=== PATIENT | male | born 1995 | race Caucasian/White ===

== ENCOUNTER → 2017-04-03 15:14 | Outpatient (CLI) | payer BC, SELFPAY ==
[2017-04-03 17:56] LABS: Absolute Neutrophil Count 4.4 X10^3/uL (2.0-7.7); Basophil# 0.03 X10^3/uL; Basophil% 0.5 % (0-1); Eosinophil# 0.06 X10^3/uL; Hematocrit 42.8 % (40-54); Hemoglobin 14.2 g/dl (13.0-16.5); Lymphocyte % 17.9 % (19-41); Mean Corp Hgb Conc 33.2 g/gl (32-36); Mean Corpuscular Hgb 26.5 pg (27.0-32.0); Mean Corpuscular Volume 79.9 fL (80-94); Mean Platelet Vol. 11.2 fl (6.2-12.0); Monocyte% 8.2 % (0-10); Neutrophil # 4.44 X10^3/uL (2.7-7.7); Neutrophil % 72.4 % (47-70); Platelet Count 174 K/mm3 (150-450); RBC Distribution Width CV 13.4 % (11.6-14.6); RBC Distribution Width SD 38.8 fl (35.1-43.9); Red Blood Count 5.36 M/mm3 (4.6-6.2); White Blood Count 6.1 K/mm3 (4.4-11.0)
[2017-04-03 17:57] LABS: POSITIVE COUNT NO; POSITIVE DIFFERENTIAL NO; POSITIVE MORPHOLOGY NO
[2017-04-03 18:15] LABS: ALB/GLOB Ratio 1.1 RATIO (0.9-2.4); AST(SGOT) 23 U/L (15-37); Alanine Aminotransfer ALT/SGPT 33 U/L (16-61); Albumin, Serum 3.8 g/dL (3.2-5.0); Alkaline Phosphatase 105 U/L (45-117); Anion Gap 8 (5-15); BUN 22 mg/dL (7-18); Calcium,Total 8.8 mg/dL (8.5-10.1); Chloride 105 mmol/L (98-107); Creatinine, Serum 1.05 mg/dL (0.70-1.30); EST Glomerular Filtration Rate 94 mL/min (>60); Est Glom Filt Rate - Afr Amer 113 mL/min (>60); Globulin 3.4 g/dL (2.2-4.2); Glucose 83 mg/dL (74-106); Potassium 3.5 mmol/L (3.5-5.1); Protein, Total 7.2 g/dL (6.4-8.2); Sodium Level 142 mmol/L (136-145)
== END ==
PROVIDERS: Family Provider Family Medicine; PCP Family Medicine; Visit Provider Family Medicine
DX: Z00.00 Encounter for general adult medical examination without abnormal findings (principal)
CPT/HCPCS: 36415; 80053; 85025

== ENCOUNTER 2017-04-08 12:28 | Day surgery (SDC) | payer BC, SELFPAY ==
--- NOTE | 2017-04-08 12:37 | EKG12_ITS ---
Test Reason : PRE-OP Blood Pressure : / mmHG Vent. Rate : 058 BPM Atrial Rate : 058 BPM P-R Int : 188 ms QRS Dur : 100 ms QT Int : 406 ms P-R-T Axes : 042 -18 006 degrees QTc Int : 398 ms Sinus bradycardia Inferior infarct , age undetermined Abnormal ECG No previous ECGs available Confirmed by DEJA YAO ([id number]), associate entertainment editor FRANCISCO MAYA ([id number]) on 04/11/2017 3:01:33 PM Referred By: REBECA Confirmed By:DEJA YAO
[2017-04-08 12:52] VITALS: BP 136/71; PULSE 66; RESP 16; TEMP 36.3; O2SAT 97; BMI 28.1
--- NOTE | 2017-04-08 13:45 | BON_PTH ---
PATIENT: AUBREY DESOUZA LOC: [facility] – [place] U#:[id number] AGE/SX: 21/M ROOM: RE04/08/[address]: Dr. Hilario Angel DPM : 1995 BED: DIS: 04/08/2017 SPEC #: [id number] RECD: 04/09/17 11:22 STATUS: DOROTHY HUGHES #: [id number] ORION: 04/08/17 13:[address]: Hilario Angel DEPT: SURGICAL PATHOLOGY RECD BY: Chiki Christopher ENTERED: 04/09/17 11:24 SP TYPE: Bone OTHR DR: Dr. Lorenzo Marshall MD Tissues: A - Bone of foot, NOS B - Bone of foot, NOS Procedures: Decalcification bone/plaque Special Stain Group I Surgery Specimen Level IV AFB Stain (control) GMS Stain (control) HEADER OPERATION: Bone biopsy right ankle PRE-OP DIAGNOSIS: Avascular necrosis right ankle TISSUE SUBMITTED: A ? Bone biopsy right ankle #1, B - Bone biopsy right ankle #2 MICROSCOPIC DIAGNOSIS A. Bone of right ankle, biopsy: Bone with reparative and active change. Negative for acid-fast bacilli and fungal organisms. B. Bone of right ankle #2, biopsy: Fragments of bone with focal changes suggestive of avascular necrosis. AM:darrel 04/15/17 COMMENT AFB and GMS stains with matched controls are negative for microorganisms. Case has been reviewed in consultation with Dr. Looney who concurs with the above diagnosis. IDC:SJ MICROSCOPIC DESCRIPTION Slides are reviewed. GROSS DESCRIPTION A - Received in fixative is one container labeled with the patient's name and designated bone biopsy right ankle. The specimen consists of multiple irregular fragments of pink-patel soft tissue that in aggregate measure 1 x 0.7 x 0.3 cm. The specimen is totally submitted in one cassette after decalcification. B - Received in fixative is one container labeled with the patient's name and designated bone biopsy right ankle #2. The specimen consists of multiple irregular fragments of pink-patel soft tissue that in aggregate measure 0.7 x 0.4 x 0.2 cm. The specimen is totally submitted in one cassette after decalcification. / RONNI:darrel 04/09/17 TC:5 CPT: 98432 x2, 78508 x2
--- NOTE | 2017-04-08 13:45 | RAD_ITS ---
STUDY: X-RAY - RIGHT ANKLE REASON FOR EXAM: Male, 21 years old. Bone biopsy. TECHNIQUE: 4 intraoperative view(s) of the ankle. COMPARISON: Comparison is made with prior examination dated January 19, 2016. FINDINGS: Fluoroscopic imaging provided for intraoperative bone biopsy of the superior aspect of the talus. RAD/Ankle 2 Views IMPRESSION: Intraoperative imaging provided for biopsy of the talus. Electronically Signed: Jassi Coronel MD at 12:27 EST Tel [phone], Service support ,
[2017-04-08] MEDS: Cefazolin 2 GM in 0.9% Normal Saline 100 ML IV (14:30)
[2017-04-08] MEDS: Bupivacaine 0.25% 30 ML Vial (14:36)
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
--- NOTE | 2017-04-08 14:49 | PCM.DC.POD ---
Discharge Diet: Light diet - advance as tolerated Discharge Activity: May Not Drive Weight Bearing Status: Partial weight bearing - Use CAM Walker boot on right foot/ankle with weightbearing/ambulation Keep extremity elevated above heart level: Right Leg - Elevate right foot/ankle as much as possible Call your doctor if your incision/area has: Continuous Slow Oozing, Sudden Increased Bleeding, Increased Pain/ Swelling, Foul Smelling Discharge Call your doctor if you observe: Fever of 101 or Higher, Shortness of breath, Chest pain, Increased palpitations (irregular heartbeat), Calf discomfort, Uncontrolled pain Cleanse incision/area with: Do not get Incision Wet, Keep Dressing Clean & Dry Allergies/Adverse Reactions: Allergies No Known Allergies Allergy (Verified 04/05/17 13:25) Medications to take at Discharge Citalopram [Celexa] 40 mg PO DAILY 07/17/15 Naproxen 500 mg PO PRN PRN 04/05/17 Hydrocodone/Acetaminophen [Vicodin 5-300 mg Tablet] 1 tab PO Q6H PRN PRN 5 Days #20 tab 04/08/17 The following prescriptions were given: Hydrocodone/Acetaminophen [Vicodin 5-300 mg Tablet] 1 tab PO Q6H PRN PRN 5 Days #20 tab PRN Reason: Pain Primary Care Physician: Lorenzo Marshall MD [Primary Care Provider] - Please Follow Up With: Hilario Angel DPM When: within 1 week or sooner if needed
[2017-04-08 14:50] VITALS: BP 136/71; BP 140/74; PULSE 75; RESP 15; TEMP 36.3; O2SAT 94
[2017-04-08 15:00] VITALS: BP 136/71; BP 149/89; PULSE 67; RESP 16; O2SAT 98
[2017-04-08 15:15] VITALS: BP 133/62; BP 136/71; PULSE 78; RESP 18; TEMP 36.9; O2SAT 100
--- NOTE | 2017-04-08 15:20 | RAD_ITS ---
STUDY: X-RAY - RIGHT ANKLE REASON FOR EXAM: Male, 21 years old. Status post bone biopsy TECHNIQUE: 3 view(s) of the ankle. COMPARISON: 01/19/2016 FINDINGS: Status post ORIF of medial malleolar fracture with 2 fixation screws. Talar neck fixation pins are identified. Sclerosis and deformity of the talus particularly along the lateral aspect is worse since the prior study. Subchondral sclerosis and lucency now involves the distal tibia. Small bony fragments adjacent to the lateral malleolus and along the posterior tibia is stable. mild soft tissue swelling is stable RAD/Ankle min 3 Views IMPRESSION: 1. Stable alignment. 2. 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 Operative changes similar. Electronically Signed: Jon Juan MD at 20:00 EST , Service support ,
[2017-04-08 16:10] VITALS: BP 136/71
== END 2017-04-08 16:24 | disposition home or self-care (01) ==
LOC: SDC 12:30 → AC 12:31
PROVIDERS: Family Provider Family Medicine; PCP Family Medicine; Visit Provider Podiatrist
PROC: (CPT 20240; principal; 2017-04-08 13:30)
DX: M87.9 Osteonecrosis, unspecified (principal); M19.071 Primary osteoarthritis, right ankle and foot; S92.101S Unspecified fracture of right talus, sequela; S82.51XS Displaced fracture of medial malleolus of right tibia, sequela; V89.2XXS Person injured in unspecified motor-vehicle accident, traffic, sequela
CPT/HCPCS: 20240; 73600; 73610; 76000; 87015; 87070; 87075; 87102; 87116; 87205; 87206; 88305; 88311; 88312; 93005; J7120; J2405

== ENCOUNTER 2017-04-19 17:24 | Observation (INO) | payer BC, SELFPAY ==
[2017-04-19] VITALS (12 sets, daily range): BP systolic 125–179; BP diastolic 54–90; PULSE 69–108; RESP 16–18; TEMP 36.2–37.5; O2SAT 94–100; BMI 28.0
[2017-04-19 10:01] LABS: Vitamin D,25 Hydroxy 24.4 ng/mL (29.95-100.01)
--- NOTE | 2017-04-19 10:30 | RAD_ITS ---
STUDY: X-RAY - LEFT ANKLE REASON FOR EXAM: Male, 21 years old. Surgical ankylosis. TECHNIQUE: 5 C-arm views from the OR. 108.5 seconds fluoroscopy time. COMPARISON: 04/08/2017.. FINDINGS: These images show posterior surgical ankylosis between the tibia, talus, calcaneus. Correlate with procedure note. Electronically Signed: Milind Wood MD at 20:29 EST , Service support , RAD/Ankle min 3 Views
[2017-04-19] MEDS: Cefazolin 2 GM in 0.9% Normal Saline 100 ML IV (10:32)
--- NOTE | 2017-04-19 10:45 | BON_PTH ---
PATIENT: AUBREY DESOUZA LOC: [facility] U#:[id number] AGE/SX: 21/M ROOM: [facility] [place] RE04/19/[address]: Dr. Vaishali Lozoya MD : 1995 BED: 1 DIS: 04/21/2017 SPEC #: [id number] RECD: 04/22/17 08:29 STATUS: DOROTHY REQ #: [id number] ORION: 04/19/17 10:[address]: Hilario Angel DEPT: SURGICAL PATHOLOGY RECD BY: Zaid Aleman ENTERED: 04/22/17 09:24 SP TYPE: Bone OTHR DR: MD Dr. Vaishali Bolden MD Dr. Paul Nielsen, MD Tissues: Tibia, NOS Procedures: Decalcification bone/plaque Surgery Specimen Level III Comments: @ Ordering doctor for DEC edited from to @ by CATHY at 04/22/17 1427 @ Ordering doctor for SUIV edited from to @ by CATHY at 04/22/17 1427 @ Submitting doctor edited from to @ by RGOOD at 04/22/17 1427 HEADER OPERATION: Right ankle, [id number] arthrodesis with internal fixation PRE-OP DIAGNOSIS: Avascular necrosis of talus, degenerative joint disease of ankle, right TISSUE SUBMITTED: Right ankle debrided nonunion MICROSCOPIC DIAGNOSIS Right ankle, nonunion bone: Pieces of bone with reactive changes. Focal mild chronic inflammation. HA:darrel 04/25/17 MICROSCOPIC DESCRIPTION Slides are reviewed. GROSS DESCRIPTION Received in fixative is one container labeled with the patient's name and designated right ankle debrided nonunion. The specimen consists of two pieces of bone measuring in aggregate 2 x 1.5 x 0.5 cm. The entire specimen is submitted in one cassette after decalcification. / HA:darrel 04/22/17 TC:5 CPT: 09635, 85958
--- NOTE | 2017-04-19 10:45 | RAD_ITS ---
STUDY: X-RAY - LEFT ANKLE REASON FOR EXAM: Male, 21 years old. Surgical ankylosis. TECHNIQUE: 5 C-arm views from the OR. 108.5 seconds fluoroscopy time. COMPARISON: 04/08/2017.. FINDINGS: These images show posterior surgical ankylosis between the tibia, talus, calcaneus. Correlate with procedure note. Electronically Signed: Milind Wood MD at 20:29 EST , Service support , RAD/O.[place] for C-Arm
[2017-04-19] MEDS: Bupivacaine 0.25% 30 ML Vial (16:45)
--- NOTE | 2017-04-19 16:58 | RAD_ITS ---
STUDY: X-RAY - RIGHT CALCANEUS REASON FOR EXAM: Male, 21 years old. Postop right ankle foot and calcaneus TECHNIQUE: 2 view(s) of the calcaneus were obtained. COMPARISON: 09/05/2017. FINDINGS: There has been fixation of the ankle posteriorly with a compression plate and screws across the distal tibia, into the talus, and into the calcaneus. There is an additional long screw that runs through the calcaneus talus and the anterior tibia. The tibiotalar and posterior tibial calcaneal joints have been decorticated for future ankylosis. No fractures are seen. RAD/Calcaneus min 2 Views IMPRESSION: Postsurgical changes with posterior fixation across the distal tibia, talus, and calcaneus. Electronically Signed: Milind Wood MD at 18:53 EST , Service support ,
--- NOTE | 2017-04-19 16:58 | RAD_ITS ---
STUDY: X-RAY - RIGHT FOOT CLINICAL: Male, 21 years old. Postop ankylosis. TECHNIQUE: 3 view(s) of the foot. COMPARISON: 04/08/2017. FINDINGS: There has been surgical ankylosis of the distal tibia, talus, and calcaneus with a posterior compression plate and a long screw through the calcaneus, talus and distal tibia. The foot is otherwise normal. RAD/Foot min 3 Views IMPRESSION: Surgical changes of ankylosis of the tibia, talus, and calcaneus. Electronically Signed: Milind Wood MD at 18:54 EST , Service support ,
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
--- NOTE | 2017-04-19 17:35 | RAD_ITS ---
STUDY: X-RAY - RIGHT ANKLE REASON FOR EXAM: Male, 21 years old. Postop fixation. TECHNIQUE: 3 view(s) of the ankle. COMPARISON: 04/08/2017. FINDINGS: Postsurgical changes of a surgical fixation between the distal tibia, talus, and calcaneus. There is partial collapse suggested of the talus. There is diffuse soft tissue swelling. Electronically Signed: Milind Wood MD at 18:58 EST , Service support , RAD/Ankle min 3 Views
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
[2017-04-19] MEDS: Cefazolin 1 GM/50 ML BAG IV (19:29)
[2017-04-19] MEDS: Acetaminophen 325 MG Tablet 650 MG PO (21:58)
[2017-04-19] MEDS: Senna/Docusate Sodium 1 Tablet PO (21:59)
[2017-04-20] MEDS: Cefazolin 1 GM/50 ML BAG IV ×2 (02:11→10:18)
[2017-04-20 04:40] VITALS: BP 133/45; PULSE 75; RESP 16; TEMP 36.8; O2SAT 95
[2017-04-20] MEDS: oxyCODONE 5 MG Tablet 10 MG PO ×4 (04:50→20:41)
[2017-04-20] MEDS: 0.9% NaCl Peripheral Flush Adult/Peds IV ×2 (06:16→07:17)
[2017-04-20] MEDS: Enoxaparin 40 MG/0.4 ML Syringe SC (06:17)
[2017-04-20] MEDS: Citalopram 40 MG TABLET PO (06:17)
[2017-04-20 07:05] LABS: Absolute Lymphocyte Count 0.87 X10^3/ul (0.83-4.51); Absolute Neutrophil Count 6.5 X10^3/uL (2.0-7.7); Basophil# 0.01 X10^3/uL; Basophil% 0.1 % (0-1); Eosinophil# 0.02 X10^3/uL; Eosinophils% 0.2 % (0-5); Hematocrit 39.2 % (40-54); Hemoglobin 13.2 g/dl (13.0-16.5); Lymphocyte # 0.87 X10^3/ul (4.0); Lymphocyte % 10.5 % (19-41); Mean Corp Hgb Conc 33.7 g/gl (32-36); Mean Corpuscular Volume 80.2 fL (80-94); Mean Platelet Vol. 10.9 fl (6.2-12.0); Monocyte# 0.94 X10^3/uL; Monocyte% 11.3 % (0-10); Neutrophil # 6.45 X10^3/uL (2.7-7.7); Neutrophil % 77.7 % (47-70); Platelet Count 146 K/mm3 (150-450); RBC Distribution Width CV 13.6 % (11.6-14.6); RBC Distribution Width SD 39.1 fl (35.1-43.9); Red Blood Count 4.89 M/mm3 (4.6-6.2); White Blood Count 8.3 K/mm3 (4.4-11.0)
[2017-04-20 07:08] LABS: POSITIVE COUNT NO; POSITIVE DIFFERENTIAL NO; POSITIVE MORPHOLOGY NO
[2017-04-20] MEDS: HYDROmorphone 1 MG/ML Syringe IV ×3 (07:10→19:54)
[2017-04-20 07:26] LABS: Anion Gap 7 (5-15); BUN 15 mg/dL (7-18); BUN/Creat Ratio 13.3 RATIO (10-20); Calcium,Total 8.1 mg/dL (8.5-10.1); Chloride 104 mmol/L (98-107); Creatinine, Serum 1.13 mg/dL (0.70-1.30); EST Glomerular Filtration Rate 86 mL/min (>60); Est Glom Filt Rate - Afr Amer 104 mL/min (>60); Estimated Creatinine Clearance 119.22 ml/min; Glucose 119 mg/dL (74-106); Potassium 3.9 mmol/L (3.5-5.1); Sodium Level 140 mmol/L (136-145)
[2017-04-20 07:37] VITALS: O2SAT 97
--- NOTE | 2017-04-20 08:12 | PCM.PROGNOTE ---
Subjective: Patient seen this morning for follow up on right ankle and subtalar joint arthrodesis on 04/19/17. Patient noted increased pain this morning once block wore off, not controlled with oxyir and morphine. Pain is localized to the fusion sites. No complaints of fever, chills, nausea, vomiting, chest pain or shortness of breath. - Physical Exam General: Alert, Oriented x3, Cooperative Extremities: Capillary Refill Less than 3 Seconds, No Calf Tenderness, Peripheral Pulses Normal, - - Dressing/splint removed, there is no active bleeding, no cellulitis, no necrosis, no blistering, no maloder, no fluctuance, no evidence of infection; skin incisions well coapted with sutures intact; patient is able to wiggle toes, and he does report he is able to feel toes when touched, vascular status intact to the foot with CFT < 2 seconds and normal temperature present. Vital Signs Temp Pulse Resp BP Pulse Ox 98.3 F 75 16 133/45 H 95 04/20/17 04:40 04/20/17 04:40 04/20/17 04:40 04/20/17 04:40 04/20/17 04:40 Oxygen Delivery Method Room Air Weight: 99.3 kg Body Mass Index (BMI) 28.0 Intake and Output for Last 24 Hours 04/18/17 04/19/17 04/20/17 23:59 23:59 23:59 Intake Total 3800 / 3800 1554 / 1554 Output Total 700 / 700 950 / 950 Balance 3100 / 3100 604 / 604 Laboratory Tests Past 24 Hrs 04/19/17 04/20/17 04/20/17 09:15 06:42 06:42 WBC 8.3 RBC 4.89 Hgb 13.2 Hct 39.2 L MCV 80.2 MCH 27.0 MCHC 33.7 RDW 13.6 RDW Differential 39.1 Plt Count 146 L MPV 10.9 Immature Gran % (Auto) 0.200 Neut % (Auto) 77.7 H Lymph % (Auto) 10.5 L [place] % (Auto) 11.3 H Eos % (Auto) 0.2 Baso % (Auto) 0.1 Absolute Neuts (auto) 6.5 Absolute Lymphs (auto) 0.87 Total Counted Not Reportable Sodium 140 Potassium 3.9 Chloride 104 Carbon Dioxide 29.0 Anion Gap 7 BUN 15 Creatinine 1.13 Estim Creat Clear Calc 119.22 Est GFR (MDRD) Af Amer 104 Est GFR (MDRD) Non-Af 86 BUN/Creatinine Ratio 13.3 Glucose 119 H Calcium 8.1 L Vitamin D 25-Hydroxy 24.4 L Assessment/Plan 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 No evidence of DVT at this time. D/C morphine and added 1-2 mg of Dilaudid q 4 hours prn pain. Also with patient's consent a right proximal ankle block was completed to elevator constructor helper pain control. The skin was cleansed with 70% isopropyl alcohol and 30mL of 0.5% Marcaine plain was given as a regional nerve block around the proximal right ankle. A clean, dry, sterile gauze, Kerlix and maria dressing was applied. With this patient noted significant improvement and significantly less pain to site. No weightbearing right foot, keep right foot elevated with heel offloaded. DVT prophylaxis: Lovenox 40mg subcutaneous daily. Low Vitamin D: Vitamin D 50,000 units PO once a week for 8 weeks. Continue to monitor, once pain is controlled with oral medications ok to discharge home (possibility tomorrow). Will continue to follow. Appreciate medicine team's assistance.
--- NOTE | 2017-04-20 08:20 | PN_ITS ---
Subjective: Patient seen this morning for follow up on right ankle and subtalar joint arthrodesis on 04/19/17. Patient noted increased pain this morning once block wore off, not controlled with oxyir and morphine. Pain is localized to the fusion sites. No complaints of fever, chills, nausea, vomiting, chest pain or shortness of breath. - Physical Exam General: Alert, Oriented x3, Cooperative Extremities: Capillary Refill Less than 3 Seconds, No Calf Tenderness, Peripheral Pulses Normal, - - Dressing/splint removed, there is no active bleeding, no cellulitis, no necrosis, no blistering, no maloder, no fluctuance, no evidence of infection; skin incisions well coapted with sutures intact; patient is able to wiggle toes, and he does report he is able to feel toes when touched, vascular status intact to the foot with CFT < 2 seconds and normal temperature present. Vital Signs Temp Pulse Resp BP Pulse Ox 98.3 F 75 16 133/45 H 95 04/20/17 04:40 04/20/17 04:40 04/20/17 04:40 04/20/17 04:40 04/20/17 04:40 Oxygen Delivery Method Room Air Weight: 99.3 kg Body Mass Index (BMI) 28.0 Intake and Output for Last 24 Hours 04/18/17 04/19/17 04/20/17 23:59 23:59 23:59 Intake Total 3800 / 3800 1554 / 1554 Output Total 700 / 700 950 / 950 Balance 3100 / 3100 604 / 604 Laboratory Tests Past 24 Hrs 04/19/17 04/20/17 04/20/17 09:15 06:42 06:42 WBC 8.3 RBC 4.89 Hgb 13.2 Hct 39.2 L MCV 80.2 MCH 27.0 MCHC 33.7 RDW 13.6 RDW Differential 39.1 Plt Count 146 L MPV 10.9 Immature Gran % (Auto) 0.200 Neut % (Auto) 77.7 H Lymph % (Auto) 10.5 L [place] % (Auto) 11.3 H Eos % (Auto) 0.2 Baso % (Auto) 0.1 Absolute Neuts (auto) 6.5 Absolute Lymphs (auto) 0.87 Total Counted Not Reportable Sodium 140 Potassium 3.9 Chloride 104 Carbon Dioxide 29.0 Anion Gap 7 BUN 15 Creatinine 1.13 Estim Creat Clear Calc 119.22 Est GFR (MDRD) Af Amer 104 Est GFR (MDRD) Non-Af 86 BUN/Creatinine Ratio 13.3 Glucose 119 H Calcium 8.1 L Vitamin D 25-Hydroxy 24.4 L Assessment/Plan 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 No evidence of DVT at this time. D/C morphine and added 1-2 mg of Dilaudid q 4 hours prn pain. Also with patient' s consent a right proximal ankle block was completed to bindery helper pain control. The skin was cleansed with 70% isopropyl alcohol and 30mL of 0.5% Marcaine plain was given as a regional nerve block around the proximal right ankle. A clean, dry, sterile gauze, Kerlix and maria dressing was applied. With this patient noted significant improvement and significantly less pain to site. No weightbearing right foot, keep right foot elevated with heel offloaded. DVT prophylaxis: Lovenox 40mg subcutaneous daily. Low Vitamin D: Vitamin D 50,000 units PO once a week for 8 weeks. Continue to monitor, once pain is controlled with oral medications ok to discharge home (possibility tomorrow). Will continue to follow. Appreciate medicine team's assistance.
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
[2017-04-20 10:11] VITALS: BP 167/60; PULSE 74; RESP 18; TEMP 36.6; O2SAT 97
[2017-04-20] MEDS: Bupivacaine Mpf 0.5% 30 ML VIAL INFILT (10:13)
[2017-04-20] MEDS: Senna/Docusate Sodium 1 Tablet PO ×2 (10:14→21:21)
[2017-04-20] MEDS: Ketorolac 30 MG/ML Syringe IV ×2 (12:35→21:21)
[2017-04-20] MEDS: Gabapentin 100 MG Capsule PO ×2 (12:39→16:38)
[2017-04-20 16:26] VITALS: BP 140/47; PULSE 70; RESP 18; TEMP 36.9; O2SAT 100
[2017-04-20] MEDS: Tamsulosin HCl 0.4 MG Capsule 0.8 MG PO (18:16)
[2017-04-20] MEDS: Famotidine 20 MG Tablet PO (21:21)
[2017-04-20 22:11] VITALS: BP 145/74; PULSE 89; RESP 16; TEMP 36.6; O2SAT 100
[2017-04-21] MEDS: HYDROmorphone 1 MG/ML Syringe IV (02:42)
[2017-04-21 02:48] VITALS: BP 155/79; PULSE 91; RESP 18; TEMP 37.6; O2SAT 94
[2017-04-21] MEDS: Ketorolac 30 MG/ML Syringe IV (05:08)
[2017-04-21] MEDS: Enoxaparin 40 MG/0.4 ML Syringe SC (05:08)
[2017-04-21] MEDS: oxyCODONE 5 MG Tablet 10 MG PO ×3 (05:25→12:54)
[2017-04-21 07:17] VITALS: O2SAT 96
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
[2017-04-21] MEDS: Acetaminophen 325 MG Tablet 650 MG PO (08:21)
[2017-04-21] MEDS: Gabapentin 100 MG Capsule PO ×2 (08:21→12:54)
[2017-04-21] MEDS: Famotidine 20 MG Tablet PO (08:22)
[2017-04-21] MEDS: Senna/Docusate Sodium 1 Tablet PO (08:23)
[2017-04-21] MEDS: Citalopram 40 MG TABLET PO (08:23)
[2017-04-21] MEDS: Tamsulosin HCl 0.4 MG Capsule 0.8 MG PO (08:23)
[2017-04-21 08:42] VITALS: BP 125/68; PULSE 76; RESP 18; TEMP 36.8; O2SAT 97
--- NOTE | 2017-04-21 09:34 | PCA ---
doctor in with pt
--- NOTE | 2017-04-21 09:36 | PN_ITS ---
Subjective: Patient was seen this morning for follow up on right TTC arthrodesis. He relates he is feeling well, and pain well controlled. He has no complaints at this time. No complains of fever, chills, nausea, vomiting, shortness of breath , chest pain or calf pain. - Physical Exam General: Alert, Oriented x3, Cooperative, No apparent distress Extremities: Capillary Refill Less than 3 Seconds, No Calf Tenderness, - - Dressing clean, dry, and intact, there is no active bleeding, no suspicion of infection and no evidence of DVT, patient is able to move/wiggle toes, and he does report he is able to feel toes when touched, vascular status intact to the foot with CFT < 2 seconds and normal temperature present, no evidence of compartment syndrome. 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 Ok to discharge home today. Applied new clean well padded below knee posterior splint secured with maria bandage. Keep clean, dry, and intact. No weightbearing right foot, keep right foot elevated with heel offloaded. DVT prophylaxis: Lovenox 40mg subcutaneous daily. Low Vitamin D: Vitamin D 50,000 units PO once a week for 8 weeks. Pain control: Oxyir and acetaminophen Patient to follow up with me in office next Saturday, sooner if needed. Appreciate medicine team's assistance.
--- NOTE | 2017-04-21 09:46 | PCM.DC.POD ---
Discharge Activity: May Not Drive, May not drive while taking narcotic pain medications., Use Crutches, - - No driving until cleared per podiatry and no longer taking narcotic therapy. Weight Bearing Status: No weight bearing, - - Strict nonweightbearing to the right foot/ankle Keep extremity elevated above heart level: Right Leg - Keep right foot/ankle elevated with pillows at or above chest level, keep heel offloaded Call your doctor if your incision/area has: Continuous Slow Oozing, Sudden Increased Bleeding, Increased Pain/ Swelling, Increased Redness, Foul Smelling Discharge, Swelling at the incision site Call your doctor if you observe: Fever of 101 or Higher, Coldness, Increased Pain, Inability to urinate, Inability to have a bowel movement, Shortness of breath, Dizziness, Fainting spells, Chest pain, Uncontrolled pain Cleanse incision/area with: Do not get Incision Wet, Keep Dressing Clean & Dry Instructions: Using Crutches: [id number], Using Crutches: Up and Down Steps, Discharge Instructions for Ankle Surgery Allergies/Adverse Reactions: Allergies No Known Allergies Allergy (Verified 04/05/17 13:25) Medications to take at Discharge Citalopram [Celexa] 40 mg PO DAILY 07/17/15 Acetaminophen [Extra Strength Non-Aspirin] 500 mg PO Q4H PRN PRN #60 tab 04/21/17 Enoxaparin Sodium [Lovenox] 40 mg SQ DAILY 30 Days #30 ml 04/21/17 Ergocalciferol [Vitamin D] 50,000 unit PO Q7D #8 cap 04/21/17 Famotidine [Pepcid] 20 mg PO BID #60 tab 04/21/17 Gabapentin [Neurontin] 100 mg PO TIDCM #90 cap 04/21/17 Oxycodone [Oxyir] 10 mg PO Q4H PRN PRN 5 Days #60 tab 04/21/17 Senna/Docusate Sodium [Senokot-S] 1 tab PO BID #90 tab 04/21/17 Temazepam [Restoril] 15 mg PO QHS PRN PRN #5 cap 04/21/17 The following prescriptions were given: Acetaminophen [Extra Strength Non-Aspirin] 500 mg PO Q4H PRN PRN #60 tab PRN Reason: Pain Oxycodone [Oxyir] 10 mg PO Q4H PRN PRN 5 Days #60 tab PRN Reason: Severe Pain (-11/27) Enoxaparin Sodium [Lovenox] 40 mg SQ DAILY 30 Days #30 ml Ergocalciferol [Vitamin D] 50,000 unit PO Q7D #8 cap Temazepam [Restoril] 15 mg PO QHS PRN PRN #5 cap PRN Reason: insomnia Famotidine [Pepcid] 20 mg PO BID #60 tab Senna/Docusate Sodium [Senokot-S] 1 tab PO BID #90 tab Gabapentin [Neurontin] 100 mg PO TIDCM #90 cap Primary Care Physician: Lorenzo Marshall MD [Primary Care Provider] - Please follow up with your Primary Care Physician in: Follow-up within 3-5 days to review admission. Please Follow Up With: Hilario Angel DPM When: within 1 week or sooner if needed Proposed Discharge Date: 04/21/17
--- NOTE | 2017-04-21 09:50 | DCINST_ITS ---
Discharge Activity: May Not Drive, May not drive while taking narcotic pain medications., Use Crutches, - - No driving until cleared per podiatry and no longer taking narcotic therapy. Weight Bearing Status: No weight bearing, - - Strict nonweightbearing to the right foot/ankle Keep extremity elevated above heart level: Right Leg - Keep right foot/ankle elevated with pillows at or above chest level, keep heel offloaded Call your doctor if your incision/area has: Continuous Slow Oozing, Sudden Increased Bleeding, Increased Pain/ Swelling, Increased Redness, Foul Smelling Discharge, Swelling at the incision site Call your doctor if you observe: Fever of 101 or Higher, Coldness, Increased Pain, Inability to urinate, Inability to have a bowel movement, Shortness of breath, Dizziness, Fainting spells, Chest pain, Uncontrolled pain Cleanse incision/area with: Do not get Incision Wet, Keep Dressing Clean & Dry Instructions: Using Crutches: [id number], Using Crutches: Up and Down Steps, Discharge Instructions for Ankle Surgery Allergies/Adverse Reactions: Allergies No Known Allergies Allergy (Verified 04/05/17 13:25) Medications to take at Discharge Citalopram [Celexa] 40 mg PO DAILY 07/17/15 Acetaminophen [Extra Strength Non-Aspirin] 500 mg PO Q4H PRN PRN #60 tab Enoxaparin Sodium [Lovenox] 40 mg SQ DAILY 30 Days #30 ml 04/21/17 Ergocalciferol [Vitamin D] 50,000 unit PO Q7D #8 cap 04/21/17 Famotidine [Pepcid] 20 mg PO BID #60 tab 04/21/17 Gabapentin [Neurontin] 100 mg PO TIDCM #90 cap 04/21/17 Oxycodone [Oxyir] 10 mg PO Q4H PRN PRN 5 Days #60 tab 04/21/17 Senna/Docusate Sodium [Senokot-S] 1 tab PO BID #90 tab 04/21/17 Temazepam [Restoril] 15 mg PO QHS PRN PRN #5 cap 04/21/17 The following prescriptions were given: Acetaminophen [Extra Strength Non-Aspirin] 500 mg PO Q4H PRN PRN #60 tab PRN Reason: Pain Oxycodone [Oxyir] 10 mg PO Q4H PRN PRN 5 Days #60 tab PRN Reason: Severe Pain (-11/27) Enoxaparin Sodium [Lovenox] 40 mg SQ DAILY 30 Days #30 ml Ergocalciferol [Vitamin D] 50,000 unit PO Q7D #8 cap Temazepam [Restoril] 15 mg PO QHS PRN PRN #5 cap PRN Reason: insomnia Famotidine [Pepcid] 20 mg PO BID #60 tab Senna/Docusate Sodium [Senokot-S] 1 tab PO BID #90 tab Gabapentin [Neurontin] 100 mg PO TIDCM #90 cap Primary Care Physician: Lorenzo Marshall MD [Primary Care Provider] - Please follow up with your Primary Care Physician in: Follow-up within 3-5 days to review admission. Please Follow Up With: Hilario Angel DPM When: within 1 week or sooner if needed Proposed Discharge Date: 04/21/17
== END 2017-04-21 15:22 | disposition home or self-care (01) | DRG 493 ==
PROVIDERS: Anesthesiology; Podiatrist; Admitting Provider Internal Medicine; Family Provider Family Medicine; PCP Family Medicine; Visit Provider Family Medicine
PROC: (CPT 20680; principal; 2017-04-19 10:30)
DX: M87.271 Osteonecrosis due to previous trauma, right ankle (principal); S92.124 Nondisplaced fracture of body of right talus; E55.9 Vitamin D deficiency, unspecified; S82.51XS Displaced fracture of medial malleolus of right tibia, sequela; V89.2XXS Person injured in unspecified motor-vehicle accident, traffic, sequela; M19.071 Primary osteoarthritis, right ankle and foot; G89.18 Other acute postprocedural pain; G89.29 Other chronic pain; F32.9 Major depressive disorder, single episode, unspecified; F41.9 Anxiety disorder, unspecified; F17.220 Nicotine dependence, chewing tobacco, uncomplicated; Z79.01 Long term (current) use of anticoagulants; Z79.899 Other long term (current) drug therapy; I25.10 Atherosclerotic heart disease of native coronary artery without angina pectoris; Z95.5 Presence of coronary angioplasty implant and graft
CPT/HCPCS: 20680; 27870; 28725; 64445; 36415; 73610; 73630; 73650; 76000; 80048; 82306; 85025; 88304; 88305; 88311; 96365; 96366; 96372; 96375; 96376; 97162; 97165; 99218; J3010; J7120; A4216; G0378; G0379; J2405

== ENCOUNTER 2017-05-25 15:31 | Emergency (ER) | payer BC, SELFPAY ==
[2017-05-25 15:34] VITALS: BP 146/90; PULSE 87; PULSE 92; RESP 18; TEMP 36.5; O2SAT 96; BMI 26.9
--- NOTE | 2017-05-25 16:14 | ED.DCSUM_ITS ---
- ER Visit Summary Date of Service: 05/25/17 Chief Complaint: Right ankle pain History of Present Illness: The patient is a 21 M who underwent fusion of the right ankle by Dr. Angel on April 19. He states he had his cast removed on . He has had a lot of itching and excoriated it. He was placed in a boot to allow the skin to heal. He states that the boot is causing irritation along his incisions and is intermittent sharp pain. He spoke with Dr. Stout who is on-call for his surgeon. She recommended he come to the emergency room for an evaluation and application of splint. She did speak with the morning emergency physician. Physical Examination: Afebrile vital signs are stable Gen: Well-nourished well-developed Head: Normocephalic atraumatic Eyes: Perrl EOMI ENT: TMs clear no rhinorrhea moist mucous membranes Neck: Supple no lymphadenopathy no JVD nontender CVS: Regular rate rhythm no murmurs normal S1-S2 Respiratory: No distress clear to auscultation bilaterally chest nontender Abdomen: Soft nontender nondistended normal bowel sounds no masses Back: Nontender Extremity: There is moderate edema of the right ankle. There is some healing excoriations of the anterior skin of the leg. The surgical incisions lateral medial and posterior are well healing and without complication. Neurovascular he is intact distally Skin: Normal color no rash Neuro: alert orientated ?3 CN II-XII intact normal strength sensation reflexes gait cerebellar Psych: Normal affect normal mood Emergency Department Course and Treatment: I spoke with Dr. Stout. He was placed in a well-padded posterior stirrup Ortho-Glass splint with about 1 inch of cotton padding. Patient states that it feels well. He is neurovascular intact pre-and post application. He will follow-up in the office and continue nonweightbearing status Impression: 1. Right ankle pain status post fusion 2. Splint by emergency physician This note was generated with Smart [employer] dictation software. It may contain incorrect words, spelling, and punctuation that were not noted in review of the chart prior to signing ED Disposition - Plan for ED Patient: Disposition: Home or Assisted Living Chief Complaint: Lower Extremity Injury Instructions: Discharge Instructions: Splint Care Referrals: Hilario Angel DPM [STAFF PHYSICIAN] - (call Saturday to schedule follow up appointment)
[2017-05-25 16:20] VITALS: BP 138/80; PULSE 80; RESP 14; O2SAT 99
== END 2017-05-25 16:56 | disposition home or self-care (01) ==
LOC: ED 16:55
PROVIDERS: Emergency Provider Emergency Medicine; Family Provider Family Medicine; PCP Family Medicine
DX: M25.571 Pain in right ankle and joints of right foot (principal); M24.671 Ankylosis, right ankle; F32.9 Major depressive disorder, single episode, unspecified; F41.9 Anxiety disorder, unspecified; Z72.0 Tobacco use
CPT/HCPCS: 29505; 99282

== ENCOUNTER 2017-07-16 13:00 | Outpatient (RCR) | payer BC, SELFPAY ==
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
--- NOTE | 2017-11-01 10:19 | HP.PTDCNRP_ITS ---
HP - Discharge Summary (1) - Patient Information AUBREY DESOUZA was seen in my office for initial evaluation on 06/19/17. The following Plan of Care was established for this patient: Initial Frequency: 2x /Week Initial Duration: 4 Weeks - Anticipated Interventions Patient/Client Instruction: Educate patient on: Benefits of Fitness Program For the Purpose of:: To improve ability to perform ADL's Therapeutic Exercise to Include: Strength training, Endurance training, Balance training, Body mechanics, Postural training, Flexibilty training, Gait and locomotor training For the Purpose of:: To improve muscle performance and motor function TENS: Yes Cryotherapy (ice pack, ice massage): Yes Thermo therapy (hot pack): Yes Ultrasound (thermal/non thermal): No For the Purpose of:: To decrease pain This patient was last seen in our office . Pertinent comments regarding their Physical therapy will appear below: Patient has not attended physical therapy in over 4 months. Appropriate for d/ c at this time. At this point I will be discontinuing this patient from physical therapy. I would be happy to see this patient again in the future if found appropriate by the physician. Thank you! Carolina Olson
== END 2017-07-16 19:00 | disposition home or self-care (01) ==
LOC: PT 13:00
PROVIDERS: Family Provider Family Medicine; PCP Family Medicine; Visit Provider Podiatrist
DX: Z98.890 Other specified postprocedural states (principal)
CPT/HCPCS: 97110; 97162

== ENCOUNTER → 2019-05-22 07:24 | Outpatient (CLI) | payer BC, SELFPAY ==
--- NOTE | 2019-05-22 07:30 | CT_ITS ---
CT of the right ankle and ankle without contrast INDICATION: Prior surgery for trauma with ankle pain, exclude avascular necrosis COMPARISON: X-ray 04/19/2017 TECHNIQUE: Multiple thin section axial CT images of the right ankle were obtained without administration of intravenous contrast and filmed in soft tissue and bone windows. Furthermore, multiple sagittal and coronal reconstructions were performed. FINDINGS: No abnormal soft tissue mass, lymphadenopathy, fluid collection. Status post tibiotalar and hindfoot arthrodesis with a posterior plate and multiple screws including a screw extending from the posterior inferior aspect of the calcaneus through the posterior subtalar joint and through the tibiotalar joint. 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 No sclerosis or bony destruction to suggest avascular necrosis. No acute fracture or dislocation. IMPRESSION: Status post tibiotalar and hindfoot arthrodesis without evidence of acute fracture, dislocation, or avascular necrosis. Electronically Signed: Zaid Adorno MD at 8:49 EDT Tel , Service support , CT/Extremity Lower without Contra
== END ==
PROVIDERS: Family Provider Family Medicine; PCP Family Medicine; Referring Provider Podiatrist; Visit Provider Podiatrist
DX: Z98.1 Arthrodesis status (principal)
CPT/HCPCS: 73700

== ENCOUNTER 2019-11-11 07:43 | Emergency (ER) | payer OTHER, SELFPAY ==
[2019-11-11 07:44] VITALS: BP 164/89; PULSE 89; RESP 16; TEMP 35.8; O2SAT 98; BMI 29.9
--- NOTE | 2019-11-11 07:57 | ED.VISSUMM ---
- ER Visit Summary Date of Service: 11/11/19 Chief Complaint: Right knee pain History of Present Illness: The patient is a 23 M presenting with right knee pain. Patient states this started last week. He states he believes he may have twisted it at work. It has been intermittently bothering him for the past week. He states he twisted it again last night at work. He tried ibuprofen at home. Denies other complaints. Physical Examination: Vitals are stable. Patient is afebrile. Alert no acute distress. HEENT exam is unremarkable. Neck is supple. Lungs are clear and equal bilaterally. Heart is regular rate and rhythm. Extremities right medial knee tenderness. Active full range of motion. No erythema or warmth. Normal distal pulses. No calf tenderness. Skin is warm and dry. No focal neurologic deficit. Remainder of exam is unremarkable. Emergency Department Course and Treatment: Right knee x-ray shows tiny joint effusion. Advised to ice and elevate. Advised use NSAIDs for pain. Advised to follow-up with primary care physician. Advised return to ED for worsening complaints. Disposition: Discharge home Impression: Right knee sprain This note was generated with [employer] dictation software. It may contain incorrect words, spelling, and punctuation that were not noted in review of the chart prior to signing ED Disposition - Plan for ED Patient: Instructions: ED Sprain Knee Referrals: Lorenzo Marshall MD [Primary Care Provider] -
--- NOTE | 2019-11-11 08:03 | RAD_ITS ---
STUDY: X-RAY - RIGHT KNEE REASON FOR EXAM: Male, 23 years old. Pain, injury TECHNIQUE: 4 view(s) of the knee. COMPARISON: Comparison is made with prior study dated 10/20/2015. FINDINGS: Normal visualized distal femur. Normal visualized proximal tibia and fibula. Normal proximal tibiofibular articulation. Normal medial femorotibial compartment. Normal lateral femorotibial compartment. Normal patellofemoral articulation. Tiny joint effusion. RAD/Knee 4 or More Views IMPRESSION: Tiny joint effusion. Electronically Signed: Jassi Coronel, at 8:33 EDT , Service support ,
--- NOTE | 2019-11-11 08:48 | ED.DEP ---
ED Disposition - Plan for ED Patient: Instructions: ED Sprain Knee Referrals: Lorenzo Marshall MD [Primary Care Provider] -
== END 2019-11-11 10:34 | disposition home or self-care (01) ==
LOC: ED 08:31
PROVIDERS: Emergency Provider Emergency Medicine; PCP Family Medicine
DX: S83.91XA Sprain of unspecified site of right knee, initial encounter (principal); M25.461 Effusion, right knee; X50.1XXA Overexertion from prolonged static or awkward postures, initial encounter; Y93.9 Activity, unspecified; Y92.89 Other specified places as the place of occurrence of the external cause; Y99.0 Civilian activity done for income or pay
CPT/HCPCS: 73564; 99283

== ENCOUNTER → 2019-12-31 16:25 | Outpatient (CLI) | payer OTHER, SELFPAY ==
--- NOTE | 2019-12-31 16:40 | MRI_ITS ---
STUDY: MRI RIGHT KNEE REASON FOR EXAM: Male, 24 years old. sprain right knee, medial pain TECHNIQUE: Standardized fat and water weighted pulse sequences were obtained in all 3 orthogonal planes. COMPARISON: Right knee x-ray dated November 11, 2019 FINDINGS: Normal medial meniscus. Normal hyaline cartilage of the medial femorotibial compartment. Normal medial femoral condyle and tibial plateau. Normal medial collateral ligamentous complex (MCL). Normal distal semimembranosus, gracilis and semitendinosus tendons. Normal lateral meniscus. Normal hyaline cartilage of the lateral femorotibial compartment. Normal lateral femoral condyle and tibial plateau. Normal proximal tibiofibular articulation. Normal lateral collateral (fibular) ligament. Normal popliteus tendon. Normal biceps femoris tendon. Normal anterior cruciate ligament (ACL). Normal posterior cruciate ligament (PCL). Normal congruent patellofemoral articulation. Normal hyaline cartilage of the patellofemoral compartment. Normal medial and lateral patellar retinaculum. Normal quadriceps tendon. Normal patellar tendon. Normal Hoffa''s fat pad. A tiny joint effusion is present. The soft tissues are unremarkable. The otherwise visualized osseous structures are unremarkable. MRI/Lower Ext Joint Only (Routine) IMPRESSION: 1. Tiny joint effusion otherwise unremarkable study. Electronically Signed: Rodney Schumacher MD at 22:22 EST , Service support ,
== END ==
PROVIDERS: PCP Family Medicine; Referring Provider Family Medicine; Visit Provider Family Medicine
DX: S83.91XA Sprain of unspecified site of right knee, initial encounter (principal); X58.XXXA Exposure to other specified factors, initial encounter; Y93.9 Activity, unspecified; Y92.9 Unspecified place or not applicable; Y99.9 Unspecified external cause status
CPT/HCPCS: 73721

== ENCOUNTER → 2020-04-08 11:40 | Outpatient (CLI) | payer OTHER, SELFPAY ==
[2020-04-08 15:48] LABS: Anion Gap 6 (5-15); BUN 19 mg/dL (7-18); BUN/Creat Ratio 17.4 RATIO (10-20); Calcium,Total 8.9 mg/dL (8.5-10.1); Chloride 106 mmol/L (98-107); Cholesterol 148 mg/dL (200); Creatinine, Serum 1.09 mg/dL (0.70-1.30); EST Glomerular Filtration Rate 87 mL/min (>60); Est Glom Filt Rate - Afr Amer 106 mL/min (>60); Glucose 101 mg/dL (74-106); High Density Lipoprotein 47 mg/dL; Potassium 3.7 mmol/L (3.5-5.1); Sodium Level 140 mmol/L (136-145); Triglycerides 72 mg/dL; Very Low Density Lipoprotein 14 mg/dL (5-40)
== END ==
PROVIDERS: PCP Family Medicine; Referring Provider Family Medicine; Visit Provider Family Medicine
DX: Z00.00 Encounter for general adult medical examination without abnormal findings (principal)
CPT/HCPCS: 36415; 80048; 80061

== ENCOUNTER → 2020-07-07 09:25 | Outpatient (CLI) | payer OTHER, SELFPAY ==
[2020-07-07 10:09] LABS: Absolute Lymphocyte Count 1.06 X10^3/uL (0.83-4.51); Basophil# 0.03 X10^3/uL; Basophil% 0.5 % (0-1); Eosinophil# 0.09 X10^3/uL; Eosinophils% 1.6 % (0-5); Hematocrit 47.1 % (40-54); Hemoglobin 15.5 g/dL (13.0-16.5); Lymphocyte # 1.06 X10^3/ul (0.83-4.51); Lymphocyte % 18.9 % (19-41); Mean Corp Hgb Conc 32.9 g/dL (32-36); Mean Corpuscular Hgb 26.8 pg (27.0-32.0); Mean Corpuscular Volume 81.3 fL (80-94); Mean Platelet Vol. 10.9 fl (6.2-12.0); Monocyte# 0.41 X10^3/uL; Monocyte% 7.3 % (0-10); NRBC Flagged by Analyzer 0 % (0-5); Neutrophil # 4.01 X10^3/uL (2.7-7.7); Neutrophil % 71.5 % (47-70); Platelet Count 183 K/mm3 (150-450); RBC Distribution Width SD 38.2 fl (35.1-43.9); Red Blood Count 5.79 M/mm3 (4.6-6.2); White Blood Count 5.6 K/mm3 (4.4-11.0)
[2020-07-07 10:43] LABS: ALB/GLOB Ratio 1.1 RATIO (0.9-2.4); AST(SGOT) 24 U/L (15-37); Alanine Aminotransfer ALT/SGPT 51 U/L (16-61); Albumin, Serum 3.9 g/dL (3.2-5.0); Alkaline Phosphatase 108 U/L (45-117); Anion Gap 6 (5-15); BUN 22 mg/dL (7-18); BUN/Creat Ratio 18.5 RATIO (10-20); Chloride 107 mmol/L (98-107); Creatinine, Serum 1.19 mg/dL (0.70-1.30); EST Glomerular Filtration Rate 79 mL/min (>60); Est Glom Filt Rate - Afr Amer 95 mL/min (>60); Globulin 3.4 g/dL (2.2-4.2); Glucose 94 mg/dL (74-106); Potassium 3.7 mmol/L (3.5-5.1); Protein, Total 7.3 g/dL (6.4-8.2); Sodium Level 139 mmol/L (136-145)
== END ==
LOC: MFPLAB 09:28
PROVIDERS: PCP Family Medicine; Referring Provider Family Medicine; Visit Provider Family Medicine
DX: M77.9 Enthesopathy, unspecified (principal)
CPT/HCPCS: 36415; 80053; 85025

== ENCOUNTER 2020-07-22 06:05 | Day surgery (SDC) | payer OTHER, SELFPAY ==
--- NOTE | 2020-07-21 15:50 | SUR.PREOP ---
pt was no show for covid test- pt called and had to leave message
[2020-07-22] VITALS (10 sets, daily range): BP systolic 92–150; BP diastolic 42–81; PULSE 56–78; RESP 16–18; TEMP 36.2–36.6; O2SAT 95–100; BMI 31.4
[2020-07-22] MEDS: Lactated Ringers 1,000 ML 100 ML IV (06:35)
--- NOTE | 2020-07-22 07:03 | BON_PTH ---
PATIENT: AUBREY DESOUZA LOC: [facility] [place] U#:[id number] AGE/SX: 24/M ROOM: RE07/22/[address]: Dr. Hilario Angel DPM : 1995 BED: DIS: 07/22/2020 SPEC #: [id number] RECD: 07/22/20 10:07 STATUS: DOROTHY REThony #: [id number] ORION: 07/22/20 07:[address]: Hilario Angel DEPT: SURGICAL PATHOLOGY RECD BY: Sharyn Dawn ENTERED: 07/22/20 11:10 SP TYPE: Bone OTHR DR: Dr. Lorenzo Marshall MD Tissues: Bone of ankle, NOS Procedures: Decalcification bone/plaque Surgery Specimen Level IV HEADER OPERATION: Exostectomy from bone, ankle PRE-OP DIAGNOSIS: Exostosis right ankle TISSUE SUBMITTED: Exostosis right ankle MICROSCOPIC DIAGNOSIS Exostosis of right ankle, excision: Bony tissue consistent with exostosis. AM:darrel 07/27/2020 MICROSCOPIC DESCRIPTION Slides are reviewed. GROSS DESCRIPTION Received in fixative is one container labeled with the patient's name and designated right ankle exostosis. The specimen consists of multiple irregular fragments of pink-white bone that in aggregate measure 2.2 x 1.8 x 0.2 cm. The specimen is totally submitted in one cassette after decalcification. / AM:darrel 07/22/20 TC:5 CPT: 46316, 43384
--- NOTE | 2020-07-22 07:25 | RAD_ITS ---
STUDY: X-RAY - RIGHT ANKLE REASON FOR EXAM: Male, 24 years old. Intraoperative digital documentation images. TECHNIQUE: A single frontal intraoperative digital view(s) of the ankle. COMPARISON: 04/08/2017 FINDINGS: Single intraoperative digital documentation shows fusion changes. RAD/Ankle 2 Views IMPRESSION: Intraoperative digital documentation image as described. Electronically Signed: eKvin Kent MD at 9:32 EDT , Service support ,
[2020-07-22] MEDS: Cefazolin 2 GM in 0.9% Normal Saline 100 ML IV (07:27)
[2020-07-22] MEDS: Bupiv/Epi 0.25% 30 ML Vial (07:35)
--- NOTE | 2020-07-22 08:25 | PCM.DC ---
Discharge Instructions Diet Discharge Diet: Light diet - advance as tolerated Activity Discharge Activity: May Not Drive Weight Bearing Status: No weight bearing (No weightbearing right foot, use crutches) Keep extremity elevated above heart level: Right Leg Additional Activity Instructions:: Keep right foot elevated with pillows as much as possible. Dressing / Incision Call your doctor if your incision/area has: Continuous Slow Oozing, Sudden Increased Bleeding, Increased Redness and Foul Smelling Discharge Call your doctor if you observe: Fever of 101 or Higher, Shortness of breath, Chest pain, Calf discomfort and Uncontrolled pain Additional Dressing/Incision Instructions:: Keep dressing/bandage right ankle clean, dry and intact for 3 days - then in 3 days ok to remove and start daily dressing changes to right ankle incision site. Cleanse with normal soap and water, but no soaking. After site is cleansed, apply clean gauze and cover with maria bandage. Follow Up Care Please Follow Up With: Hilario Angel DPM When: 7-10 days, sooner if needed. Test Results: Test results from this visit will be discussed in further detail at your follow-up appointment, if applicable. Discharge Plan Admission Attending Provider: Hilario Angel Primary Care Provider: Lorenzo Marshall Discharge Orders/Prescriptions Prescriptions: New hydrocodone-acetaminophen 5-325 mg tablet 1 tab PO Q6H PRN (Reason: pain) 3 Days Qty: 10 RF: 0 No Action NK RF: 0 Referrals / Follow Up: Lorenzo Marshall MD [Primary Care Provider] - Disposition Discharge Orders: Discharge Patient (Routine); Ordered 07/22/20 Ordered By: Dr. Hilario Angel
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
--- NOTE | 2020-07-22 08:45 | RAD_ITS ---
STUDY: X-RAY - RIGHT ANKLE REASON FOR EXAM: Male, 24 years old. Postoperative evaluation after fusion. TECHNIQUE: 4 view(s) of the ankle. COMPARISON: 04/19/2017. FINDINGS: Posterior plate and screw fixation of the distal tibia, tibiotalar joint and subtalar joint. Cancellus screw through the subtalar joint and tibiotalar joint. No complicating features identified. RAD/Ankle min 3 Views IMPRESSION: Postsurgical changes of ankle fusion with no complications identified at this time. Electronically Signed: Kevin Kent MD at 9:33 EDT , Service support ,
[2020-07-22] MEDS: HYDROcodone Bitartrate/Apap 5/325 Tablet PO (09:44)
[2020-07-22 10:25] LABS: Anion Gap 6 (5-15); BUN 16 mg/dL (7-18); BUN/Creat Ratio 14.4 RATIO (10-20); Calcium,Total 8.8 mg/dL (8.5-10.1); Chloride 107 mmol/L (98-107); Creatinine, Serum 1.11 mg/dL (0.70-1.30); EST Glomerular Filtration Rate 85 mL/min (>60); Est Glom Filt Rate - Afr Amer 103 mL/min (>60); Estimated Creatinine Clearance 118.28 ml/min; Glucose 112 mg/dL (74-106); Potassium 4.4 mmol/L (3.5-5.1); Sodium Level 140 mmol/L (136-145)
== END 2020-07-22 10:48 | disposition home or self-care (01) ==
LOC: SDC 06:09 → AC 06:11
PROVIDERS: PCP Family Medicine; Referring Provider Podiatrist; Visit Provider Podiatrist
PROC: (CPT 27635; principal; 2020-07-22 07:15)
DX: M89.9 Disorder of bone, unspecified (principal); M77.51 Other enthesopathy of right foot and ankle; Z20.822 Contact with and (suspected) exposure to COVID-19
CPT/HCPCS: 01480; 27635; 73600; 73610; 76000; 80048; 87426; 88304; 88305; 88311; J7120; J2405